=== PATIENT | female | born 1960 | race Caucasian/White ===

== ENCOUNTER 2016-10-25 15:27 | Inpatient (IN) | payer OTHER ==
[2016-10-25] VITALS: BP 155/88
[~2016-10-25] VITALS: Ht 167.6 cm; Wt 90.0 kg
[2016-10-25 17:19] LABS: MCH 24.6 PG (29.0-34.0); MCHC 29.2 G/DL (30.0-36.0); MCV 84.2 FL (83-99); MEAN PLAT.VOLUME 9.1 uM^3 (9.5-12.4); PLATELET COUNT 835 K/uL (156-360); RBC DIS.WIDTH-CV 15.6 % (11.8-14.6); RBC DIS.WIDTH-SD 46.7 % (39-53); RED BLOOD COUNT 2.97 M/uL (3.80-5.20); WHITE BLOOD COUNT 16.5 K/uL (4.1-10.2)
[2016-10-25 17:30] LABS: CHLORIDE 110 mEq/L (99-109); INTER. NORMALIZED RATIO 1.1; POTASSIUM 3.6 mEq/L (3.7-5.4); PROTHROMBIN TIME 11.2 (9.2-11.2); PTT 27.3 (25-32); SODIUM 141 mEq/L (136-147)
[2016-10-25 17:32] LABS: GLUCOSE 86 mg/dL (70-99)
[2016-10-25 17:33] LABS: ANION GAP 8 MEQ/L (2-14)
[2016-10-25 17:34] LABS: TOTAL BILIRUBIN 0.2 mg/dL (0.0-1.0)
[2016-10-25 17:35] LABS: ALKALINE PHOSPHATASE 59 IU/L (3-129)
[2016-10-25 17:36] LABS: GFR ESTIMATE (CALCULATED) > 59 mL/min/
[2016-10-25 17:37] LABS: UREA NITROGEN (BUN) 11 mg/dL (9-23)
[2016-10-25 18:07] LABS: BASE EXCESS 2.4 mEq/L (-3 to +3); BICARBONATE 26.2 mEq/L (22-26); CARBOXY HGB 1.9 % (0-5); METHEMOGLOBIN 1.1 % (0-1.5); PCO2 36 mm Hg (35-45); PO2 71 mm Hg (80-100); SITE RR; pH 7.47 (7.35-7.45)
[2016-10-25 18:08] LABS: COMMENTS - BLOOD GASES A+C+; DEVICE 840; FI02 30 %; MECHANICAL RATE 16 resp/min; MODE AC; PEEP 5 CM/H20; TIDAL VOLUME 550 ML; TOTAL RESP RATE 16 resp/min
[2016-10-25] MEDS ORDERED: GUAIFENESIN400 MG GT (19:05)
[2016-10-25] MEDS ORDERED: OMEPRAZOLE40 M1 GT (19:06)
[2016-10-25] MEDS ORDERED: LEVOTHYROXINE125 MCG GT (19:07)
[2016-10-25] MEDS ORDERED: CLONAZEPAM0.5 MG GT (19:07)
[2016-10-25] MEDS ORDERED: METRONIDAZOLE500 MG GT (19:09)
[2016-10-25] MEDS ORDERED: KEPPRA1000 MG GT (19:09)
[2016-10-25] MEDS ORDERED: COLACE10 MG/ML GT (19:10)
[2016-10-25] MEDS ORDERED: METOPROLOL TART25 MG GT (19:10)
[2016-10-25] MEDS ORDERED: SENNA8.6 MG GT (19:11)
[2016-10-25] MEDS ORDERED: LEVOFLOXAC500 MG/101 IV (19:12)
[2016-10-25] MEDS ORDERED: TYLENOL REGULA325 MG GT (19:13)
[2016-10-25] MEDS ORDERED: MIRALAX255 GM GT (19:14)
[2016-10-25] MEDS ORDERED: PROVENTIL,2.5 MG/3 M IH (19:14)
[2016-10-25] MEDS ORDERED: PHILLIPS'400 MG/5 M GT (19:16)
[2016-10-25] MEDS ORDERED: DULCOLAX10 MG PR (19:16)
[2016-10-25] MEDS ORDERED: FLEET ENEMA-AD118 ML PR (19:16)
[2016-10-25 20:39] LABS: HEMATOCRIT 23.9 % (36.0-46.0); MCH 24.7 PG (29.0-34.0); MCHC 29.7 G/DL (30.0-36.0); MCV 83.3 FL (83-99); PLATELET COUNT 814 K/uL (156-360); RBC DIS.WIDTH-CV 15.6 % (11.8-14.6); RBC DIS.WIDTH-SD 45.9 % (39-53); RED BLOOD COUNT 2.87 M/uL (3.80-5.20); WHITE BLOOD COUNT 15.5 K/uL (4.1-10.2)
[2016-10-25 21:30] VITALS: BP 146/84
[2016-10-25 21:36] VITALS: BP 146/84
[2016-10-25] MEDS ORDERED: ASPIR 8181 M1 PO (22:24)
[2016-10-25] MEDS ORDERED: WARFARIN SODIUM1 MG GT (22:32)
[2016-10-25] MEDS ORDERED: ZOLPIDEM TARTRA10 MG GT (22:34)
[2016-10-26] VITALS (13 sets, daily range): BP systolic 94–155; BP diastolic 51–88
[2016-10-26 02:06] LABS: METH RESISTANT S AUREUS PCR NEGATIVE (NEGATIVE)
[2016-10-26 02:09] LABS: PROBE CHECK PASS; SPECIMEN PROCESSING CONTROL PASS
[2016-10-26 06:22] LABS: ANION GAP 10 MEQ/L (2-14); CHLORIDE 107 MEQ/L (99-109); GFR ESTIMATE (CALCULATED) > 59 mL/min/; POTASSIUM 4.1 MEQ/L (3.7-5.4); SAMPLE HEMOLYSIS CHECK 0; SAMPLE ICTERIC CHECK 0; SAMPLE LIPEMIA CHECK 0; SODIUM 140 MEQ/L (136-147); UREA NITROGEN (BUN) 10 mg/dL (9-23)
[2016-10-26 06:23] LABS: GLUCOSE 114 mg/dL (70-99)
[2016-10-26 06:24] LABS: BASOPHIL COUNT 0.2 K/uL (0-0.1); EOSINOPHIL (%) 3.3 % (0-5); EOSINOPHIL COUNT 0.5 K/uL (0-0.3); HEMATOCRIT 22.3 % (36.0-46.0); IMMATURE GRANULOCYTE (%) 1.4 % (0.0-0.7); IMMATURE GRANULOCYTE COUNT 0.2 K/uL; LYMPHOCYTE COUNT 1.8 K/uL (1.0-2.8); MCH 24.8 PG (29.0-34.0); MCHC 29.6 G/DL (30.0-36.0); MCV 84.4 FL (83-99); MEAN PLAT.VOLUME 9.2 uM^3 (9.5-12.4); MONOCYTE (%) 8.9 % (3-12); MONOCYTE COUNT 1.4 K/uL (0-0.8); NEUTROPHIL (%) 74.2 % (45-76); NEUTROPHIL COUNT 11.7 K/uL (1.8-6.4); PLATELET COUNT 828 K/uL (156-360); RBC DIS.WIDTH-CV 15.9 % (11.8-14.6); RBC DIS.WIDTH-SD 48.4 % (39-53); RED BLOOD COUNT 2.66 M/uL (3.80-5.20); WHITE BLOOD COUNT 15.8 K/uL (4.1-10.2)
[2016-10-26 20:40] LABS: HEMATOCRIT 29.1 % (36.0-46.0); MCV 84.6 FL (83-99)
[2016-10-27] VITALS: BP 168/85
[2016-10-27 04:00] VITALS: BP 136/68
[2016-10-27 05:53] LABS: ANION GAP 11 MEQ/L (2-14); CHLORIDE 106 MEQ/L (99-109); GFR ESTIMATE (CALCULATED) > 59 mL/min/; GLUCOSE 119 mg/dL (70-99); POTASSIUM 4.1 MEQ/L (3.7-5.4); SAMPLE HEMOLYSIS CHECK 0; SAMPLE ICTERIC CHECK 0; SAMPLE LIPEMIA CHECK 0; SODIUM 140 MEQ/L (136-147); UREA NITROGEN (BUN) 8 mg/dL (9-23)
[2016-10-27 06:51] LABS: ABS NEUTROPHIL COUNT 12.65; ANISOCYTOSIS 2+; EOSINOPHIL ABS CT 0.16; HEMATOCRIT 27.1 % (36.0-46.0); MACROCYTES 1+; MCV 83.9 FL (83-99); MEAN PLAT.VOLUME 8.8 uM^3 (9.5-12.4); PLAT.SUFFICIENCY INCREASED; PLATELET CLUMPS PRESENT - PLATELET COUNT APPEARS INCREASED; PLATELET COUNT 725 K/uL (156-360); RBC DIS.WIDTH-CV 15.8 % (11.8-14.6); RBC DIS.WIDTH-SD 48.5 % (39-53); RED BLOOD COUNT 3.23 M/uL (3.80-5.20); TARGET CELLS RARE; USER ID CCL; WHITE BLOOD COUNT 15.8 K/uL (4.1-10.2)
[2016-10-27 07:40] LABS: DELETE MACHINE DIFF? YES
[2016-10-27 08:00] VITALS: BP 153/84
[2016-10-27 09:45] LABS: HEMATOCRIT 28.2 % (36.0-46.0); MCV 83.2 FL (83-99)
[2016-10-27 12:00] VITALS: BP 153/84
[2016-10-27 16:00] VITALS: BP 151/76
[2016-10-27 20:00] VITALS: BP 139/70
[2016-10-27 20:55] LABS: HEMATOCRIT 30.4 % (36.0-46.0); MCV 84.2 FL (83-99)
[2016-10-28] VITALS: BP 124/63
[2016-10-28 06:01] LABS: NRBC (%) 0.5 /100 WBC (0-0); PLATELET COUNT 821 K/uL (156-360)
[2016-10-28 06:15] LABS: ANION GAP 12 MEQ/L (2-14); CHLORIDE 105 MEQ/L (99-109); GFR ESTIMATE (CALCULATED) > 59 mL/min/; IRON 19 MCG/DL (35-150); POTASSIUM 4.2 MEQ/L (3.7-5.4); SAMPLE HEMOLYSIS CHECK 0; SAMPLE ICTERIC CHECK 0; SAMPLE LIPEMIA CHECK 0; SODIUM 142 MEQ/L (136-147); UREA NITROGEN (BUN) 10 mg/dL (9-23)
[2016-10-28 06:17] LABS: GLUCOSE 189 mg/dL (70-99)
[2016-10-28 06:24] LABS: BASOPHIL COUNT 0.1 K/uL (0-0.1); EOSINOPHIL (%) 0 % (0-5); IMMATURE GRANULOCYTE (%) 0.8 % (0.0-0.7); IMMATURE GRANULOCYTE COUNT 0.3 K/uL; LYMPHOCYTE COUNT 0.7 K/uL (1.0-2.8); MCV 83.8 FL (83-99); MONOCYTE (%) 0.8 % (3-12); MONOCYTE COUNT 0.3 K/uL (0-0.8); NEUTROPHIL (%) 96.2 % (45-76); NEUTROPHIL COUNT 33.5 K/uL (1.8-6.4); RBC DIS.WIDTH-CV 16.1 % (11.8-14.6); RBC DIS.WIDTH-SD 49.1 % (39-53); RED BLOOD COUNT 3.58 M/uL (3.80-5.20)
[2016-10-28 06:30] LABS: WHITE BLOOD COUNT 34.8 K/uL (4.1-10.2)
[2016-10-28 07:13] LABS: HEMATOLOGY COMMENT 1 SMEAR COMPATIBLE; USER ID CCL
[2016-10-28 08:00] VITALS: BP 152/83
[2016-10-28 12:00] VITALS: BP 138/69
[2016-10-28 12:40] LABS: FERRITIN 43 NG/ML (10-291)
[2016-10-28 16:00] VITALS: BP 136/78
[2016-10-28 19:44] LABS: HEMATOCRIT 27.3 % (36.0-46.0); MCV 84.3 FL (83-99)
[2016-10-28 20:00] VITALS: BP 132/68
[2016-10-29] VITALS: BP 103/55
[2016-10-29 04:00] VITALS: BP 126/60
[2016-10-29 06:13] LABS: HEMATOCRIT 25.6 % (36.0-46.0); MCH 25.7 PG (29.0-34.0); MCHC 30.5 G/DL (30.0-36.0); MCV 84.5 FL (83-99); MEAN PLAT.VOLUME 8.9 uM^3 (9.5-12.4); NRBC (%) 0.4 /100 WBC (0-0); PLATELET COUNT 757 K/uL (156-360); RBC DIS.WIDTH-CV 16.6 % (11.8-14.6); RBC DIS.WIDTH-SD 50.7 % (39-53); RED BLOOD COUNT 3.03 M/uL (3.80-5.20); WHITE BLOOD COUNT 27.4 K/uL (4.1-10.2)
[2016-10-29 06:58] LABS: ANION GAP 11 MEQ/L (2-14); CHLORIDE 108 MEQ/L (99-109); GFR ESTIMATE (CALCULATED) > 59 mL/min/; GLUCOSE 159 mg/dL (70-99); POTASSIUM 3.8 MEQ/L (3.7-5.4); SAMPLE HEMOLYSIS CHECK 0; SAMPLE ICTERIC CHECK 0; SAMPLE LIPEMIA CHECK 0; SODIUM 144 MEQ/L (136-147)
[2016-10-29 06:59] LABS: UREA NITROGEN (BUN) 21 mg/dL (9-23)
[2016-10-29 07:23] LABS: ABS NEUTROPHIL COUNT 24.65; ANISOCYTOSIS OCC; HYPOCHROMASIA OCC; PLAT.SUFFICIENCY INCREASED; POLYCHROMASIA OCC; USER ID CL
[2016-10-29 08:00] VITALS: BP 123/63
[2016-10-29 11:46] LABS: HEMATOCRIT 25.2 % (36.0-46.0); MCV 84.8 FL (83-99)
[2016-10-29 12:00] VITALS: BP 96/46
[2016-10-29 14:37] LABS: DELETE MACHINE DIFF? YES
[2016-10-29 16:00] VITALS: BP 117/67
[2016-10-29 20:00] VITALS: BP 99/54
[2016-10-30] VITALS (8 sets, daily range): BP systolic 126–154; BP diastolic 64–84
[2016-10-30 07:00] LABS: MCH 25.4 PG (29.0-34.0); MCV 84.6 FL (83-99); MEAN PLAT.VOLUME 8.9 uM^3 (9.5-12.4); NRBC (%) 0.6 /100 WBC (0-0); PLATELET COUNT 774 K/uL (156-360); RBC DIS.WIDTH-CV 16.9 % (11.8-14.6); RBC DIS.WIDTH-SD 52.3 % (39-53); RED BLOOD COUNT 3.19 M/uL (3.80-5.20); WHITE BLOOD COUNT 20.7 K/uL (4.1-10.2)
[2016-10-30 07:33] LABS: ANION GAP 11 MEQ/L (2-14); CHLORIDE 108 MEQ/L (99-109); GFR ESTIMATE (CALCULATED) > 59 mL/min/; GLUCOSE 161 mg/dL (70-99); POTASSIUM 4.1 MEQ/L (3.7-5.4); SAMPLE HEMOLYSIS CHECK 0; SAMPLE ICTERIC CHECK 0; SAMPLE LIPEMIA CHECK 0; SODIUM 144 MEQ/L (136-147); UREA NITROGEN (BUN) 20 mg/dL (9-23)
[2016-10-30 07:48] LABS: EOSINOPHIL (%) 0 % (0-5); HEMATOLOGY COMMENT 1 SMEAR COMPATIBLE; IMMATURE GRANULOCYTE (%) 2.9 % (0.0-0.7); IMMATURE GRANULOCYTE COUNT 0.6 K/uL; LYMPHOCYTE COUNT 1.3 K/uL (1.0-2.8); MONOCYTE (%) 5.9 % (3-12); MONOCYTE COUNT 1.2 K/uL (0-0.8); NEUTROPHIL (%) 84.6 % (45-76); NEUTROPHIL COUNT 17.5 K/uL (1.8-6.4); PLAT.SUFFICIENCY INCREASED; USER ID BLP
[2016-10-31] VITALS (11 sets, daily range): BP systolic 93–157; BP diastolic 57–94
[2016-10-31 06:28] LABS: HEMATOCRIT 30.3 % (36.0-46.0); MCH 26.3 PG (29.0-34.0); MCV 84.6 FL (83-99); RBC DIS.WIDTH-SD 52.5 % (39-53); RED BLOOD COUNT 3.58 M/uL (3.80-5.20); WHITE BLOOD COUNT 17.4 K/uL (4.1-10.2)
[2016-10-31 06:30] LABS: DELETE MACHINE DIFF? YES
[2016-10-31 06:35] LABS: ANION GAP 11 MEQ/L (2-14); CHLORIDE 109 MEQ/L (99-109); GFR ESTIMATE (CALCULATED) > 59 mL/min/; GLUCOSE 76 mg/dL (70-99); POTASSIUM 3.9 MEQ/L (3.7-5.4); SAMPLE HEMOLYSIS CHECK 0; SAMPLE ICTERIC CHECK 0; SAMPLE LIPEMIA CHECK 0; SODIUM 145 MEQ/L (136-147); UREA NITROGEN (BUN) 17 mg/dL (9-23)
[2016-10-31 07:49] LABS: ABS NEUTROPHIL COUNT 14.65; ANISOCYTOSIS 1+; MEAN PLAT.VOLUME 8.8 uM^3 (9.5-12.4); PLAT.SUFFICIENCY INCREASED; PLATELET COUNT 723 K/uL (156-360); POLYCHROMASIA OCC; TEAR DROP CELLS OCC; USER ID CL
[2016-11-01] VITALS (8 sets, daily range): BP systolic 106–172; BP diastolic 63–94
[2016-11-01 06:30] LABS: HEMATOCRIT 29.5 % (36.0-46.0); MCH 25.9 PG (29.0-34.0); MCHC 30.8 G/DL (30.0-36.0); MCV 83.8 FL (83-99); MEAN PLAT.VOLUME 8.9 uM^3 (9.5-12.4); NRBC (%) 0.3 /100 WBC (0-0); PLATELET COUNT 760 K/uL (156-360); RBC DIS.WIDTH-CV 16.9 % (11.8-14.6); RBC DIS.WIDTH-SD 51.5 % (39-53); RED BLOOD COUNT 3.52 M/uL (3.80-5.20); WHITE BLOOD COUNT 13.2 K/uL (4.1-10.2)
[2016-11-01 06:42] LABS: EOSINOPHIL (%) 0 % (0-5); IMMATURE GRANULOCYTE (%) 1.1 % (0.0-0.7); IMMATURE GRANULOCYTE COUNT 0.2 K/uL; LYMPHOCYTE COUNT 1.2 K/uL (1.0-2.8); MONOCYTE (%) 3.2 % (3-12); MONOCYTE COUNT 0.4 K/uL (0-0.8); NEUTROPHIL (%) 86.8 % (45-76); NEUTROPHIL COUNT 11.5 K/uL (1.8-6.4)
[2016-11-01 07:01] LABS: ANION GAP 11 MEQ/L (2-14); CHLORIDE 109 MEQ/L (99-109); GFR ESTIMATE (CALCULATED) > 59 mL/min/; POTASSIUM 4.5 MEQ/L (3.7-5.4); SAMPLE HEMOLYSIS CHECK 0; SAMPLE ICTERIC CHECK 0; SAMPLE LIPEMIA CHECK 0; SODIUM 142 MEQ/L (136-147); UREA NITROGEN (BUN) 12 mg/dL (9-23)
[2016-11-01 07:02] LABS: GLUCOSE 116 mg/dL (70-99)
[2016-11-01] MEDS ORDERED: METRONIDAZOLE500 MG GT (13:44)
[2016-11-01] MEDS ORDERED: FEOSOL300 MG/5 M GT (13:45)
[2016-11-01] MEDS ORDERED: PREVACID SOLUTA30 MG GT (13:46)
[2016-11-01] MEDS ORDERED: BACTRIM,SEPTRA S1 ML GT (13:47)
[2016-11-01] MEDS ORDERED: CLONAZEPAM0.5 MG GT (13:48)
[2016-11-01] MEDS ORDERED: PREDNISOLONE SO10 MG GT (13:48)
== END 2016-11-01 16:38 | DRG 377 ==
LOC: EDBD 15:27 → EME 15:27 → 4WEST 20:10 → EDOF 20:10 → 4WEST 21:14
PROVIDERS: Emergency Medicine; Family Medicine; Internal Medicine Gastroenterology; Specialist
PROC: 5A1955Z Respiratory Ventilation, Greater than 96 Consecutive Hours (ICD-10-PCS; principal; 2016-10-25)
PROC: 30233N1 Transfusion of Nonautologous Red Blood Cells into Peripheral Vein, Percutaneous Approach (ICD-10-PCS; 2016-10-26)
PROC: 0DB68ZZ Excision of Stomach, Via Natural or Artificial Opening Endoscopic (ICD-10-PCS; 2016-10-31)
DX: K92.2 Gastrointestinal hemorrhage, unspecified (principal); J15.212 Pneumonia due to Methicillin resistant Staphylococcus aureus; J69.0 Pneumonitis due to inhalation of food and vomit; Z99.11 Dependence on respirator [ventilator] status; J96.10 Chronic respiratory failure, unspecified whether with hypoxia or hypercapnia; G93.1 Anoxic brain damage, not elsewhere classified; N39.0 Urinary tract infection, site not specified; C81.90 Hodgkin lymphoma, unspecified, unspecified site; J90 Pleural effusion, not elsewhere classified; R40.3 Persistent vegetative state; J98.11 Atelectasis; J44.0 Chronic obstructive pulmonary disease with (acute) lower respiratory infection; J20.9 Acute bronchitis, unspecified; D64.9 Anemia, unspecified; I10 Essential (primary) hypertension; E03.9 Hypothyroidism, unspecified; Z93.0 Tracheostomy status; F41.9 Anxiety disorder, unspecified; G40.909 Epilepsy, unspecified, not intractable, without status epilepticus; K29.60 Other gastritis without bleeding; K44.9 Diaphragmatic hernia without obstruction or gangrene; K31.7 Polyp of stomach and duodenum; R19.5 Other fecal abnormalities; E66.01 Morbid (severe) obesity due to excess calories; R32 Unspecified urinary incontinence; Z93.1 Gastrostomy status; Z88.5 Allergy status to narcotic agent; Z86.718 Personal history of other venous thrombosis and embolism; Z85.118 Personal history of other malignant neoplasm of bronchus and lung; Z68.34 Body mass index [BMI] 34.0-34.9, adult; Z87.891 Personal history of nicotine dependence; B96.89 Other specified bacterial agents as the cause of diseases classified elsewhere
CPT/HCPCS: 36600; 71010; 76937; 80048; 80053; 80069; 80202; 82272; 82607; 82728; 82803; 83540; 83605; 84466; 85014; 85018; 85025; 85027; 85610; 85730; 86850; 86900; 86901; 86920; 87070; 87077; 87081; 87147; 87186; 87205; 87493; 87641; 88305; 88342 TC; 94002; 94003; 94640; 94640 76; 99202; 99281; 99285; C1894; C9113; J0330; J1940; J1956; J2543; J2930; J3370; J7042; J7050; P9016